=== PATIENT | female | born 1980 | race Two or more races ===

== ENCOUNTER 2025-04-23 17:10 | Emergency (ER) | payer OTHER, SELFPAY ==
--- NOTE | 2025-04-23 17:19 | XR_ITS ---
EXAMINATION: PA chest single view TECHNIQUE: Upright PA chest single view Date and time: April 23, 2025, 1735 hours, comparison June 26, 2022 INDICATIONS: Chest pain shortness of breath today. FINDINGS: Normal heart size The lungs are clear. The osseous structures are intact. IMPRESSION: No active disease
--- NOTE | 2025-04-23 17:19 | EKG_ITS ---
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
[2025-04-23 17:20] VITALS: BP 134/83; PULSE 98; RESP 18; TEMP 36.7; O2SAT 99; BMI 30.9
[2025-04-23 17:47] LABS: Basophils # (Auto) 0.0 Thou/mm3 (0.0-0.2); Basophils % (Auto) 1 % (0-2.5); Eosinophils # (Auto) 0.1 Thou/mm3 (0.0-0.5); Eosinophils % (Auto) 1 % (0-10); Hematocrit 35.9 % (36.0-46.0); Hemoglobin 11.5 g/dL (12.0-16.0); Immature Granulocytes Auto 0.02 Thou/mm3 (0.00-0.00); Lymphocytes # (Auto) 3.0 Thou/mm3 (1.0-4.8); Lymphocytes % (Auto) 41 % (10-50); Mean Corpuscular HGB Conc 32.0 g/dl (31.0-37.0); Mean Corpuscular Hemoglobin 24.7 pg (25.0-35.0); Mean Corpuscular Volume 77 fL (80-100); Monocytes # (Auto) 0.7 Thou/mm3 (0.0-0.8); Monocytes % (Auto) 9 % (0-12); Neutrophils # (Auto) 3.6 Thou/mm3 (1.8-7.7); Neutrophils % (Auto) 49 % (37-80); Nucleated Red Blood Cell # 0.00 Thou/mm3 (0.00-0.00); Nucleated Red Blood Cell % 0 /100 WBC (0); Platelet Count 445 Thou/mm3 (140-440); RDW Standard Deviation 42.5 fL (36.4-46.3); Red Blood Count 4.65 Miln/mm3 (4.00-5.20); White Blood Count 7.4 Thou/mm3 (3.6-11.0)
[2025-04-23 17:56] LABS: Collection Type, Urine Clean Catch
[2025-04-23 18:05] LABS: B-Type Natriuretic Peptide < 20 pg/mL (0-100)
[2025-04-23 18:05] LABS: HCG Qualitative,Urine Negative
[2025-04-23 18:09] LABS: Bacteria,Urine Rare; Bilirubin,Urine Negative (Negative); Blood,Urine Negative (Negative); Clarity,Urine Clear (Clear/Hazy); Color,Urine Lt-Yellow (Lt Yel-Yel); Glucose, Urine Negative (Negative); Ketones,Urine Negative (Negative); Leukocyte Esterase,Urine Negative (Negative); Nitrite,Urine Negative (Negative); PH,Urine 6.0 (5.0-7.0); Protein,Urine Negative (Neg - Trace); RBC,Urine 1 /hpf (0-3); Specific Gravity,Urine 1.012 (1.001-1.035); Squamous Epithelial Cell,Urine 1 /hpf (0-5); Urobilinogen,Urine Negative mg/dL (0.0-1.0); WBC,Urine 1 /hpf (0-5)
[2025-04-23 18:10] LABS: Alanine Aminotransferase 13 U/L (10-49); Albumin, Serum 4.5 gm/dL (3.5-5.0); Albumin/Globulin Ratio 1.6 (1.2-2.2); Alkaline Phosphatase 75 U/L (46-116); Anion Gap 12 (7-16); Aspartate Amino Transferase < 8 U/L (0-34); BUN/Creatinine Ratio 8 Ratio (12-20); Bilirubin,Total 0.7 mg/dL (0.3-1.2); Blood Urea Nitrogen 7 mg/dL (9-23); Calcium 9.5 mg/dL (8.3-10.6); Calcium (Corrected) 9.5 mg/dL (8.5-10.1); Carbon Dioxide 25.6 mMol/L (20.0-31.0); Chloride 101 mMol/L (98-107); Creatinine (Component) 0.9 mg/dL (0.6-1.3); Estimated Creatinine Clearance 84.7 mL/min (>60); Globulin 2.8 gm/dL (2.3-3.5); Glucose 174 mg/dL (74-106); Osmolality,Calculated 279 (275-295); Potassium 4.5 mMol/L (3.4-5.1); Sodium 139 mMol/L (136-145); Thyroid Stimulating Hormone 1.94 uIU/mL (0.55-4.78); Total Protein 7.3 gm/dL (5.7-8.2); Troponin I < 0.020 ng/mL (0.0-0.045); eGFR > 60 See Note
[2025-04-23 18:19] LABS: D-Dimer 690 ng/mL (<600)
--- NOTE | 2025-04-23 18:40 | XR_ITS ---
Examination: CTA chest with intravenous contrast 2-D reconstructions 3-D reconstructions, vascular Date and time of exam: April 23, 2025, 1925 hours INDICATIONS: Chest pain shortness of breath today, clinical diagnosis pulmonary emboli CTDI: vol (mGy) 16.1 DLP: (mGycm) 349 Technique: Multiple axial sections of the thorax have been obtained. 3 mm slice thickness, from below the hemidiaphragms to above the apices of the lungs. Mediastinal and lung density settings have been obtained. 2-D sagittal and coronal reconstructions. 3-D angiographic renderings, 3-D volume renderings, 3D post processing, vascular maximum intensity projections obtained. Contrast administered is 100 cc of Isovue-370. Low dose protocols were performed. One or more of the following dose reduction techniques were used; automated exposure control, adjustment of the mA and/or KV according to patient size, use of iterative reconstruction technique. Findings: No thoracic aortic aneurysmal dilatation or dissection. Pulmonary artery segments are not enlarged. No pulmonary artery filling defects No pneumonia pulmonary edema or pleural disease 18 mm focal lateral left breast asymmetry, axial image 52, 8 mm nodule lateral anterior left breast in addition No visualized liver or splenic lesions Absent gallbladder No hydronephrosis IMPRESSION: Negative for pulmonary artery emboli No pneumonia pulmonary edema or pleural disease 18 mm 8 mm left breast nodules, recommend diagnostic mammography, bilateral breast sonography follow-up
[2025-04-23 21:14] LABS: Troponin I < 0.020 ng/mL (0.0-0.045)
--- NOTE | 2025-04-23 21:34 | PD.EDCHEST ---
ED Chest Pain RME/HPI General Chief Complaint: Chest Pain Stated Complaint: Chest/head/neck/jaw/left arm pressure Time Seen by Provider: 04/23/25 17:15 Arrival date/time: 04/23/25 17:10 This is a case of 44-year-old female with history of hypertension diabetes came in in the emergency room with on and off chest pain radiating to the left arm neck jaw and back patient stated that the chest pain is more on pressure-like pain but no palpitation no shortness of breath persistence of the symptoms thus patient decided to sought consult here in the emergency room Limitations: no limitations Related Data Home Medications ?Medication ?Instructions ?Recorded ?Confirmed alogliptin 25 mg-pioglitazone 30 1 tab PO DAILY 01/20/21 03/27/21 mg tablet (Oseni) insulin glargine 100 unit/mL (3 42 unit subcut HS 01/20/21 03/27/21 mL) subcutaneous pen (Basaglar KwikPen U-100 Insulin) metformin 1,000 mg tablet,extended 1,000 mg PO BID 03/27/21 03/27/21 release 24hr (osmotic) Previous Rx's ?Medication ?Instructions ?Recorded pantoprazole 40 mg tablet,delayed 40 mg PO QDAY #30 tabs 06/26/22 release (Protonix) Allergies Allergy/AdvReac Type Severity Reaction Status Date / Time No Known Allergies Allergy Verified 06/26/22 14:45 Review of Systems Review of Systems Systems Reviewed: All systems reviewed, normal except as documented Constitutional Constitutional: Reports system reviewed and no additional complaints, except as documented and Reports as per HPI Cardiovascular Cardiovascular: Reports system reviewed and no additional complaints, except as documented, Reports as per HPI, Denies acrocyanosis, Reports chest pain, Denies chest pain at rest, Denies chest pain with activity, Denies claudication, Denies diaphoresis, Denies dyspnea, Denies dyspnea on exertion, Denies edema, Denies irregular heart rhythm, Denies leg edema, Denies leg ulcers, Denies lightheadedness, Denies orthopnea, Denies palpitations, Denies paroxysmal nocturnal dyspnea, Denies pedal edema, Reports radiating jaw, neck or arm pain, Denies rapid heart rate, Denies slow heart rate and Denies syncope Respiratory Respiratory: Reports system reviewed and no additional complaints, except as documented, Reports as per HPI, Denies cough, Denies dyspnea and Denies dyspnea on exertion Gastrointestinal Gastrointestinal: Reports system reviewed and no additional complaints, except as documented and Reports as per HPI Musculoskeletal Musculoskeletal: Reports system reviewed and no additional complaints, except as documented and Reports as per HPI Neurologic Neurologic: Reports system reviewed and no additional complaints, except as documented, Reports as per HPI and Denies syncope Endocrine Endocrine: Denies palpitations Past Medical History Past Medical History NEUROLOGIC: Negative Neurological Disorders or Seizures CARDIAC: Negative Cardiac Disorders or Congestive Heart Failure RESPIRATORY: Negative Chronic Obstructive Pulmonary Disease (COPD) or Asthma GASTROINTESTINAL: Positive Gastrointestinal Disorders and Gall Bladder Disease GENITOURINARY: Negative Genitourinary Disorders or Renal Disease REPRODUCTIVE: Positive Previous Pregnancies MUSCULOSKELETAL: Negative Musculoskeletal Disorders ENDOCRINE: Positive Endocrine Disorders and Diabetes Mellitus Type 2; Negative Diabetes Mellitus Type 1 HEMATOLOGIC: Negative Blood Disorders or Sickle Cell Disease OTHER HISTORY: Positive Measles; Negative Hospitalization, Shingles, Falls, Blood Transfusions, Blood Transfusion Reaction, Anesthesia Reactions, MRSA, VRSA or Cancer Family History FAMILY HISTORY: Negative Family Anesthesia Reaction Surgical History SURGICAL: Positive Section Social History SMOKING STATUS: Never smoker ED Exam General Limitations: Present no limitations General appearance: Present other (Patient is awake alert oriented not in distress nontoxic looking well-hydrated well-nourished); Absent appears intoxicated or anxious Head Head exam: Present atraumatic, normocephalic and normal inspection Eye Eye exam: Present normal appearance, PERRL, EOMI and other (PERRL EOM intact normal conjunctiva no palpable edema no hyphema) ENT ENT exam: Present normal exam, normal oropharynx, mucous membranes moist and other (HEENT exam is normal and unremarkable exam is also normal) Neck Neck exam: Present normal inspection, full ROM and other (Exam is normal negative for meningeal sign); Absent trachea midline, tenderness, meningismus, lymphadenopathy or thyromegaly Chest Chest inspection: Present normal inspection and symmetric chest wall rise; Absent tenderness, rash or abscess Respiratory Respiratory exam: Present normal lung sounds bilaterally and other; Absent respiratory distress, wheezes, stridor, accessory muscle use or prolonged expiratory phase Cardiovascular Cardiovascular exam: Present regular rate, normal rhythm, normal heart sounds and other; Absent bradycardia, tachycardia, irregular rhythm, systolic murmur, diastolic murmur, rubs, gallop or clicks Abdominal Exam Abdominal exam: Present soft and normal bowel sounds; Absent distention, tenderness, guarding, rebound, rigidity, diminished bowel sounds, hyperactive bowel sounds, hypoactive bowel sounds or organomegaly Extremities Exam Extremities exam: Present normal inspection and full ROM Back Exam Back exam: Present normal inspection and full ROM; Absent tenderness, CVA tenderness (R), CVA tenderness (L), muscle spasm, paraspinal tenderness, vertebral tenderness, sciatic notch tenderness (R), sciatic notch tenderness (L), straight leg raise (R) or straight leg raise (L) Neurological Exam Neurological exam: Present alert, oriented X3, CN II-XII intact, normal gait and reflexes normal; Absent motor sensory deficit Psychiatric Psychiatric exam: Present normal affect and normal mood Skin Skin exam: Present warm, dry, intact, normal color and other Course Quality Measures none Orders Category Date Time Status CT Screening NOW Care 04/23/25 18:40 Active EKG (ED ONLY) *Do not use* NOW Care 04/23/25 17:[address] angio chest Stat Exams 04/23/25 18:40 Completed EKG (ED Only) Stat Exams 04/23/25 17:19 Draft XR chest 1V Stat Exams 04/23/25 17:19 Completed BNP [B-Type Natriuretic Peptide] Stat Lab 04/23/25 17:31 Completed CBC Stat Lab 04/23/25 17:31 Completed Comprehensive Metabolic Panel Stat Lab 04/23/25 17:31 Completed D-Dimer Stat Lab 04/23/25 17:31 Completed HCG Qualitative,Urine Stat Lab 04/23/25 17:45 Completed TSH [Thyroid Stimulating Hormone] Stat Lab 04/23/25 17:31 Completed Troponin I Stat Lab 04/23/25 17:31 Completed Troponin I Stat Lab 04/23/25 20:32 Completed Urinalysis Stat Lab 04/23/25 17:45 Completed Vital Signs Vital signs: Vital Signs Temperature 98.1 F 04/23/25 17:20 Pulse Rate 98 04/23/25 17:20 Respiratory Rate 18 04/23/25 17:20 Blood Pressure 134/83 H 04/23/25 17:20 Pulse Oximetry (%) 99 04/23/25 17:20 Oxygen Delivery Method Room Air 04/23/25 17:20 Patient is afebrile not tachycardic not tachypneic BP stable not hypoxic oxygen saturation is 99% in room air Chest Pain MDM Narrative MDM Narrative:: This is a case of 44-year-old female with history of hypertension diabetes came in in the emergency room with on and off chest pain radiating to the left arm neck jaw and back patient stated that the chest pain is more on pressure-like pain but no palpitation no shortness of breath persistence of the symptoms thus patient decided to sought consult here in the emergency room patient is awake alert oriented not in distress nontoxic looking well-hydrated well-nourished excellent skin turgor negative for meningeal sign HEENT exam is normal jaw exam is normal neck exam is normal lungs sound is clear no crackles no wheezing no rales no retraction no stridor heart normal rate regular rhythm no murmur no edema neurological exam is normal awake alert oriented x 4 no focal deficit GCS 15 of 15 steady gait the rest of the physical examination and neurological exam is normal and unremarkable vital signs stable BP stable not tachycardic not tachypneic afebrile and nonhypoxic blood test showed no leukocytosis no anemia kidney and liver function is normal no electrolyte imbalance urinalysis is normal patient to troponin is negative BNP is negative TSH is normal, EKG is sinus tach at 103 no PVCs D-dimer was [address] angiogram was performed and noted negative for pulmonary emboli negative for pneumonia but with breast nodule noted x-ray of the chest is also normal at this point based on my physical examination and history and the result of the above tests I do not think patient is having pulmonary embolism or myocardial infarction patient was advised to follow-up with PCP in 2 days for reevaluation and to see a mixer operator for further evaluation and treatment of chest pain for possible echocardiogram stress test and Holter monitor patient glucose is also normal patient was advised also to see a general surgeon for breast nodule for diagnostic mammography to rule out breast malignancy patient will follow-up with the ER for any worsening symptoms or any emergent concern return precaution to the ER or call 911 is advised Patient was discharged with comfortable condition walking with stable gait. Patient verbalized no further complains explained diagnosis and answered patient question. Patient is comfortable with the proposed management plan including the need to follow up with his/her primary care physician and any specialist if applicable Discussed patient for any urgent condition or worsening sx, He/She needed to go to emergency room immediately or call 911. Patient acknowledge the responsibility to follow up as instructed and to monitor her/his symptoms. For any persistence of the symptoms for more than 3-5 days return precaution advised. Discussed the result of the test and was given printed discharge instruction Patient data External records reviewed:: [facility] previous records Clinical information provided by:: patient and family Social determinants that could affect healthcare access:: none Patient has the following chronic illnesses:: None How is presenting disease/condition affected by chronic disease/condition?: no chronic disease Evaluation data The following diagnostics were reviewed and interpreted by me:: lab results, radiology exam(s) and EKG tracing(s) Lab and/or radiology exams considered but not ordered:: Reviewed Interpretation Summary: Reviewed Medications / Prescriptions Medications or Prescriptions considered but not ordered:: Given Medication administrations:: Given Consultations Consultation(s) initiated? (list below): No Diagnosis Chest Pain Differential Diagnosis: stable angina, atypical chest pain, st elevation myocardial infarction, costochondritis, chest pain and other (Pulmonary embolism) Most likely diagnosis given after review of the tests above:: Chest pain of unknown etiology Admission Indicated Admission indicated?: not indicated Explain why admission is indicated or not indicated:: Not indicated Admission Request Was there a request for admission?: No Admission Attestation Admission request attestation: Not indicated Disposition Plan Disposition Plan: Discharge Discharge Attestation Discharge Attestation: The patient and all family members were given an opportunity to ask questions and understood the discharge instructions. Discharge instructions specifically effects, indications for sooner follow up or return to the emergency department, and the expected course of current diagnosis. Patient condition: Stable Discharge Plan Plan Patient Disposition: HOME (Self Care) Patient condition on transfer: Stable Prescriptions/Referrals Prescriptions/Med Rec: No Action Leisa Cordova U-100 Insulin 100 unit/mL (3 mL) insulin pen 42 unit SUBCUT HS Patient Comments: INJECT 36 UNITS SUBCUTANEOUSLY EVERY MORNING FOR DIABETES alogliptin-pioglitazone [Oseni] 25-30 mg tablet 1 tab PO DAILY Patient Comments: TAKE ONE TABLET BY MOUTH EVERY DAY FOR DIABETES metformin 1,000 mg Tablet Extended Release 24hr 1,000 mg PO BID pantoprazole [Protonix] 40 mg tablet,delayed release (DR/EC) 40 mg PO QDAY Qty: 30 0RF Referrals: Chelle Bazan PA-C [Primary Care Provider, Family Practice] - In 1 week Problem List Clinical Impression: Chest pain of unknown etiology, Breast nodule Patient/Caregiver Discharge Instructions Education Materials: ED Breast Lump, Uncertain Cause, ED Chest Pain, Uncertain Cause Additional Instructions: Follow-up with your primary care physician in 2 days for reevaluation and to refer to mixer operator for further evaluation and treatment of chest pain for possible echocardiogram stress test and Holter monitor it is also important to see a general surgeon for further evaluation and treatment of breast nodule and possible diagnostic mammogram as suggested by the radiologist for further evaluation and treatment of breast nodule to rule out malignancy recurrence persistent worsening symptoms or any emergent concern call 911 or go to the nearest emergency room keep hydrated Print Language: Wolof Stand Alone Forms: Rosalind Award Info., Patient Portal Info Letter PA/MEDICAL/SURGERY REGISTERED NURSE Supervising Physician PA/MEDICAL/SURGERY REGISTERED NURSE Supervising Physician: Dr. Josh Correa
[2025-04-23 21:36] VITALS: BP 113/81; PULSE 88; RESP 16; TEMP 36.4; O2SAT 98
--- NOTE | 2025-04-23 22:08 | PC.NURSE ---
PROVIDER ELAINA MADE AWARE PT COMPLAINING OF PRESSURE IN HEAD. PROVIDER ELAINA SPOKE WITH PT AND OFFERED HEAD CT, PT REFUSED. PT AWAKE AND ALERT, INFORMED TO RETURN FOR ANY WORSENING OF SYMPTOMS.
== END 2025-04-23 22:24 | disposition home or self-care (01) ==
PROVIDERS: Nurse Practitioner Family; Emergency Provider Family Medicine; PCP Physician Assistant
DX: R07.9 Chest pain, unspecified (principal); N63.0 Unspecified lump in unspecified breast; E11.9 Type 2 diabetes mellitus without complications; I10 Essential (primary) hypertension; Z79.84 Long term (current) use of oral hypoglycemic drugs
CPT/HCPCS: 36415; 71045; 71275; 80053; 81001; 81025; 83880; 84443; 84484; 85025; 85379; 93005; 99283; A4649; Q9967

== ENCOUNTER → 2025-07-02 | Outpatient (CLI) | payer OTHER, MEDICAID, SELFPAY ==
--- NOTE | 2025-07-02 14:30 | XR_ITS ---
Examination: Breast ultrasound, unilateral, left complete Date and time of exam: July 02, 2025, 1446 hours INDICATIONS: CT examination April 23, 2000 2518 mm focal lateral left breast asymmetry 8 nodule lateral anterior left breast, mammogram December 24, 1999 2414 mm asymmetry upper outer right breast Technique: Real-time rivera scale ultrasonographic imaging performed left breast including all 4 quadrants as well as nipple retroareolar and axillary region. Findings: 2:00 cyst 8 x 8 mm 4:00 irregular cyst 7 x 6 mm No solid nodules IMPRESSION: BI-RADS Category 2: Benign findings
--- NOTE | 2025-07-02 15:00 | XR_ITS ---
Examination: Diagnostic digital mammography, unilateral, left Computer aided detection 3-D breast Tomosynthesis, unilateral Date and time of exam: July 02, 2025, 1520 hours INDICATIONS: Mammogram March 09, 2024 focal asymmetry upper outer right breast Technique: Nonmagnified MLO, CC views of the left breast have been obtained, reconstructed from 3-D Tomosynthesis images. R2 computer aided detection program utilized for evaluation of suspicious masses and/or abnormal calcifications. 3-D Tomosynthesis images obtained. Findings: Scattered areas of fibroglandular density Circumscribed nodule outer left breast, noted on the December 24, 2023 exam Impression: BI-RADS category 3: Probably benign findings Recommend 1 additional 6-month left mammogram follow-up
== END | disposition home or self-care (01) ==
PROVIDERS: PCP Physician Assistant; Referring Provider Physician Assistant; Visit Provider Physician Assistant
DX: R92.332 Mammographic heterogeneous density, left breast (principal)
CPT/HCPCS: 76641; 77061; 77065; G0279